=== PATIENT | female | born 1990 | race American Indian/Alaskan Native ===

== ENCOUNTER 2018-01-05 03:25 | Emergency (ER) | payer SELFPAY ==
[2018-01-05] MEDS ORDERED: NACL 0.9% 1000 ML 1,000 ML IV ONE (04:01)
[2018-01-05 04:34] LABS: Basophils # (Auto) 0.1 K/mm3 (0.0-0.1); Basophils % (Auto) 0.8 % (0.0-1.8); Eosinophils # (Auto) 0.4 K/mm3 (0.0-0.4); Eosinophils % (Auto) 4.3 % (0.0-4.3); Hematocrit 38.7 % (30.3-42.9); Hemoglobin 13.5 gm/dl (10.1-14.3); Lymphocytes # (Auto) 2.9 K/mm3 (1.2-5.4); Lymphocytes % (Auto) 34.5 % (13.4-35.0); Mean Corpuscular HGB Conc 35 % (30-34); Mean Corpuscular Hemoglobin 31 pg (28-32); Mean Corpuscular Volume 88 fl (79-97); Monocytes # (Auto) 0.8 K/mm3 (0.0-0.8); Monocytes % (Auto) 9.1 % (0.0-7.3); Platelet Count 291 K/mm3 (140-440); Red Blood Count 4.41 M/mm3 (3.65-5.03); Red Cell Distribution Width 13.6 % (13.2-15.2)
[2018-01-05 04:49] LABS: Bilirubin,Urine NEG (Negative); Blood,Urine LG (Negative); Color,Urine Yellow (Yellow); Mucus,Urine 2+ /HPF
[2018-01-05 04:52] LABS: WBC,Urine > 182.0 /HPF (0.0-6.0)
[2018-01-05 04:55] LABS: Alanine Aminotransferase 16 units/L (7-56); Albumin 4.4 g/dL (3.9-5); BUN/Creatinine Ratio 24; Blood Urea Nitrogen 17 mg/dL (7-17); Calcium 9.4 mg/dL (8.4-10.2); Hemolysis Index 7; Lipase 173 units/L (13-60)
[2018-01-05] MEDS ORDERED: ZOFRAN IV ONE (06:52)
[2018-01-05] MEDS ORDERED: MORPHINE IV ONE (06:53)
[2018-01-05] MEDS ORDERED: TORADOL IV ONE (07:02)
--- NOTE | 2018-01-05 08:12 | Cat Scan Report ---
CT ABDOMEN PELVIS WITHOUT CONTRAST: HISTORY: abdominal pain. COMPARISON: none. TECHNIQUE: Helical CT in 1.25mm intervals without IV contrast. Sagittal and coronal reconstructions. FINDINGS: Lung bases: Normal. Liver: Normal. Biliary system: Normal. Pancreas: Normal. Spleen: Normal. Kidneys/ureters/bladder: A 5 mm calyceal stone is identified at the inferior pole of the left kidney. A 4 mm calyceal stone is identified at the inferior pole of the right kidney. No evidence for renal mass, cystic disease or hydronephrosis. The ureters and bladder are unremarkable. Adrenal glands: Normal. Aorta: Normal. Intestines: Within normal limits given no oral contrast was administered. Appendix: Normal. Pelvic viscera: Normal. Ascites: None. Adenopathy: None. Musculoskeletal: Normal. IMPRESSION: Bilateral nephrolithiasis. No hydronephrosis. Otherwise, unremarkable noncontrast CT of the abdomen and pelvis.
--- NOTE | 2018-01-05 09:17 | Emergency Department Report ---
ED General Adult HPI - General Chief complaint: Abdominal Pain Stated complaint: ABDOMINAL PAIN Time Seen by Provider: 01/05/18 06:51 Source: patient Mode of arrival: Ambulatory Limitations: No Limitations - History of Present Illness Initial comments: 27-year-old female with past medical history presents with a complaint of abdominal pain. She describes her abdominal pain as being in the epigastric region and being present for the past 5 days. Patient states that with her epigastric pain she has been having to force herself to vomit. Patient denies any hematemesis or hematochezia. Patient states her last vomiting episode was one hour prior to arrival. Patient denies any dysuria or any hematuria. Patient denies any fever. Patient denies any dysuria urgency or hesitancy. Since states that her abdominal pain in her epigastric region radiates to her back. Severity scale (0 -10): 0 - Related Data Previous Rx's Medication Instructions Recorded Last Taken Type Ciprofloxacin/Ciprofloxa HCl 500 mg PO BID 7 Days tbmp.24hr 01/05/18 Unknown Rx [Ciprofloxacin ER 500 mg Tablet] HYDROcodone/APAP 5-325 [[place] 1 each PO Q6HR PRN #20 tablet 01/05/18 Unknown Rx 5/325] Ondansetron [Zofran Odt] 4 mg PO Q8HR #10 tab.rapdis 01/05/18 Unknown Rx Allergies Allergy/AdvReac Type Severity Reaction Status Date / Time No Known Allergies Allergy Unverified 01/05/18 04:01 ED Review of Systems ROS: Stated complaint: ABDOMINAL PAIN Other details as noted in HPI Constitutional: denies: chills, fever Eyes: denies: eye pain, eye discharge, vision change ENT: denies: ear pain, throat pain Respiratory: denies: cough, shortness of breath, wheezing Cardiovascular: denies: chest pain, palpitations Endocrine: no symptoms reported Gastrointestinal: abdominal pain, vomiting. denies: nausea, diarrhea Genitourinary: denies: urgency, dysuria, discharge Musculoskeletal: denies: back pain, joint swelling, arthralgia Skin: denies: rash, lesions Neurological: denies: headache, weakness, paresthesias Psychiatric: denies: anxiety, depression Hematological/Lymphatic: denies: easy bleeding, easy bruising ED Past Medical Hx - Past Medical History Previous Medical History?: No - Surgical History Past Surgical History?: No - Social History Smoking Status: Never Smoker Substance Use Type: Marijuana - Medications Home Medications: Home Medications Medication Instructions Recorded Confirmed Last Taken Type Ciprofloxacin/Ciprofloxa HCl 500 mg PO BID 7 Days tbmp.24hr 01/05/18 Unknown Rx [Ciprofloxacin ER 500 mg Tablet] HYDROcodone/APAP 5-325 [[place] 1 each PO Q6HR PRN #20 tablet 01/05/18 Unknown Rx 5/325] Ondansetron [Zofran Odt] 4 mg PO Q8HR #10 tab.rapdis 01/05/18 Unknown Rx ED Physical Exam - General Limitations: No Limitations General appearance: alert, other (uncomfortable; awake) - Head Head exam: Present: atraumatic, normocephalic - Eye Eye exam: Present: normal appearance - ENT ENT exam: Present: mucous membranes dry - Neck Neck exam: Present: normal inspection - Respiratory Respiratory exam: Present: normal lung sounds bilaterally. Absent: respiratory distress - Cardiovascular Cardiovascular Exam: Present: regular rate, normal rhythm. Absent: systolic murmur, diastolic murmur, rubs, gallop - GI/Abdominal GI/Abdominal exam: Present: soft, tenderness (in epigastric region), normal bowel sounds, other (patient has no flank pain). Absent: guarding, rebound, mass - Rectal Rectal exam: Present: deferred - Extremities Exam Extremities exam: Present: normal inspection - Back Exam Back exam: Present: normal inspection - Neurological Exam Neurological exam: Present: alert, oriented X3 - Psychiatric Psychiatric exam: Present: normal affect, normal mood - Skin Skin exam: Present: warm, dry, intact, normal color. Absent: rash ED Course Vital Signs 01/05/18 01/05/18 03:29 03:58 Temperature 98.6 F 98.6 F Pulse Rate 77 82 Respiratory 18 18 Rate Blood Pressure 126/59 126/59 O2 Sat by Pulse 98 98 Oximetry - Reevaluation(s) Reevaluation #1: 01/05/18 09:18 Patient's pain has improved status post therapy and patient is able to tolerate liquid while here in emergency department. ED Medical Decision Making - Lab Data Result diagrams: 01/05/18 04:23 01/05/18 04:23 - Radiology Data Radiology results: report reviewed - Medical Decision Making Patient made aware of her diagnosis of nephrolithiasis and patient to follow up with urology regarding this. Patient to be discharged with antibiotic therapy and pain medication and nausea medicine. Patient has normal creatinine function and no elevated white count and has been afebrile. - Differential Diagnosis DDX; UTI; Pancreatitis; Obstruction; Anemia; electrolyte abnormality Critical care attestation.: If time is entered above; I have spent that time in minutes in the direct care of this critically ill patient, excluding procedure time. ED Disposition Clinical Impression: Nephrolithiasis, Urinary tract infection, Gastritis Disposition: TO HOME OR SELFCARE Is pt being admited?: No Does the pt Need Aspirin: No Condition: Good Instructions: Kidney Stones (ED), Urinary Tract Infection in Women (ED) Additional Instructions: Nephrolithiasis Prescriptions: Ciprofloxacin/Ciprofloxa HCl [Ciprofloxacin ER 500 mg Tablet] 500 mg PO BID 7 Days tbmp.24hr HYDROcodone/APAP 5-325 [[place] 5/325] 1 each PO Q6HR PRN #20 tablet PRN Reason: Pain Ondansetron [Zofran Odt] 4 mg PO Q8HR #10 tab.rapdis Referrals: PRIMARY CARE, [Primary Care Provider] - 3-5 Days JETT SHELBY MD [Staff Physician] - 3-5 Days Time of Disposition: 09:28 Print Language: CZECH
[2018-01-05 09:49] VITALS: BP 133/79
== END 2018-01-05 09:48 | disposition home or self-care (01) ==
LOC: ED 03:25
DX: N20.0 Calculus of kidney (principal); N39.0 Urinary tract infection, site not specified; K29.70 Gastritis, unspecified, without bleeding
CPT/HCPCS: 36415; 74176; 80053; 81001; 82140; 83690; 84703; 85025; 87040; 96361; 96374; 96375; 99284; J1885; J2405; J7030; J2270